=== PATIENT | male | born 1950 | race Caucasian/White ===

== ENCOUNTER 2017-01-22 02:06 | Emergency (ER) | payer MEDICARE, OTHER ==
[2017-01-22] MEDS ORDERED: LIDOCAINE 2% 20 ML VIAL. ONE (02:13)
[2017-01-22] MEDS ORDERED: NAPR500T PO (02:27)
--- NOTE | 2017-01-22 02:28 | PHYS DOC ---
Past Medical History Past Medical History: Hypertension Past Surgical History: Appendectomy, Tonsillectomy Smoking: Cigarettes Adult General Chief Complaint Chief Complaint: FINGER INJURY HPI HPI Patient is a 66 year old male who presents with right dislocated middle finger. He is right hand dominant. He slipped going up the stairs and grabbed with his hand and dislocated his finger. This occurred 30 min prior to arrival. No other injuries. Review of Systems Review of Systems Musculoskeletal: Denies any other extremity pain or injury Integument: Denies rash or skin lesions; no laceration Current Medications Current Medications Current Medications Medications (Trade) Dose Ordered Sig/Laura Start Time Stop Time Status Last Admin Dose Admin Lidocaine HCl 20 ml STK-MED ONCE 01/22/17 02:13 01/22/17 02:14 DC Lidocaine HCl (Xylocaine-Mpf 1% Vial) 2 ml 1X ONCE 01/22/17 02:30 01/22/17 02:31 Allergies Allergies Allergies Coded Allergies Type Severity Reaction Last Updated Verified No Known Drug Allergies 01/22/17 No Physical Exam Physical Exam Constitutional: Well developed, well nourished, no acute distress, non-toxic appearance. Skin: Warm, dry, no erythema, no rash. no wounds Extremities: Right hand: right middle finger with obvious dislocation of PIP joint. NVI distally; normal cap refill Current Patient Data Vital Signs reviewed BP 147/81, P 82, sat 97% on RA Radiology/Procedures Radiology/Procedures Right middle finger post reduction xray interpreted by myself at 0225 AM: no fracture seen; PIP joint in place Course & Med Decision Making Course & Med Decision Making Evaluated patient. Obvious dislocation of right middle PIP. Digital block placed and finger reduced. Post reduction xray with no fracture Dragon Disclaimer Dragon Disclaimer This electronic medical record was generated, in whole or in part, using a voice recognition dictation system. Departure Departure Impression: Primary Impression: Dislocation of PIP joint of finger Disposition: 01 HOME, SELF-CARE Condition: GOOD Referrals: MAXIMILIAN MAE MD (PCP) SENTHIL RODRIGUEZ II, MD Patient Instructions: Finger Dislocation Additional Instructions: wear the splint until you have been rechecked. You can call your personal physician or Dr Rodriguez, the orthopedic surgeon for recheck Scripts Naproxen (NAPROSYN) 500 Mg Tablet 1 TAB PO BID, #30 TAB 1 Refill Prov: MANSI ANDRADE MD 01/22/17 Joint Reduction Procedure Joint Indication: Joint dislocation Consent: Consent was obtained from patient Procedure: The pre-reduction exam showed distal perfusion and neurologic function to be normal.. The patient was placed in the appropriate position. Anesthesia/pain control with digital block of right middle finger of 1% lidocaine; 9cc used. Reduction of the PIP joint of the right middle finger was performed by myself using traction technique without difficulty. Post reduction films were obtained and revealed satisfactory reduction. A post-reduction exam revealed distal perfusion and neurologic function to be normal. The affected area was immobilized with long finger splint. The patient tolerated the procedure well. Complications: none. Problem Qualifiers Primary Impression: Dislocation of PIP joint of finger Encounter type: initial encounter Qualified Codes: S63.289A - Dislocation of proximal interphalangeal joint of unspecified finger, initial encounter MANSI ANDRADE MD Jan 22, 2017 02:28
[2017-01-22] MEDS ORDERED: LIDOCAINE 1% PF 2 ML VIAL. INJ ONE (02:30)
--- NOTE | 2017-01-22 07:52 | RAD ---
Exam: Right fingers radiograph 01/22/2017 at 0223 hours Indication: Dislocation of the right middle finger status post reduction Comparison: None available Technique: 3 views of the middle digit are provided Findings: Alignment is normal. There is no acute fracture. No joint space narrowing. There is soft tissue swelling. No osseous erosion or soft tissue gas. Bone mineralization is within normal limits. Impression: Soft tissue swelling involving the middle digit without evidence for fracture status post reduction.
== END 2017-01-22 02:42 | disposition home or self-care (01) ==
LOC: ER 02:06
DX: S63.282A Dislocation of proximal interphalangeal joint of right middle finger, initial encounter (principal); I10 Essential (primary) hypertension; W18.49XA Other slipping, tripping and stumbling without falling, initial encounter; Y93.89 Activity, other specified; Y92.89 Other specified places as the place of occurrence of the external cause; Y99.8 Other external cause status
CPT/HCPCS: 26770; 73140; 99284-25